=== PATIENT | male | born 1960 | race Hispanic/Latino ===

== ENCOUNTER → 2022-08-05 | Outpatient (CLI) | payer BC ==
[~2022-08-05] MED LIST: IOPAMIDOL 370 MG/ML 100 ML INFUS..BTL INJ ONE
[2022-08-05 15:52] LABS: CREATININE, SERUM 0.8 mg/dL (0.72-1.25)
== END ==
LOC: CT 15:10
PROVIDERS: ATTEND Internal Medicine Gastroenterology
DX: R10.30 Lower abdominal pain, unspecified (principal); R19.8 Other specified symptoms and signs involving the digestive system and abdomen; R19.5 Other fecal abnormalities
CPT/HCPCS: 36415; 74177; 82565; 84520; Q9967

== ENCOUNTER → 2024-01-30 | Outpatient (REF) | payer BC | LOC: EDBD 14:30 → US 14:35 | PROVIDERS: ATTEND Urology | DX: I86.1 Scrotal varices (principal) | CPT/HCPCS: 76870; 93976 ==